=== PATIENT | male | born 1960 | race African-American/Black ===

== ENCOUNTER 2018-04-09 04:08 | Emergency (ER) | payer MEDICAID ==
[~2018-04-09] VITALS: Ht 177.8 cm; Wt 104.3 kg
[2018-04-09] MEDS ORDERED: QUEtiapine FUMARATE 100 MG TAB PO ONE (04:30)
[2018-04-09 08:49] VITALS: BP 102/71
== END 2018-04-09 10:45 | disposition home or self-care (01) ==
LOC: ER 04:11
DX: F25.9 Schizoaffective disorder, unspecified (principal)